=== PATIENT | female | born 1995 | race Caucasian/White ===

== ENCOUNTER 2023-10-01 18:26 | Observation (INO) | payer BC, SELFPAY ==
[2023-10-01 10:58] VITALS: BP 120/86
[2023-10-01 11:25] LABS: % Basophils 0.8 % (0-2); % Eosinophils 1.2 % (0-6); % Immature Granulocytes 0.5 % (0-0.5); % Lymphocytes 29.2 % (20.5-51.1); % Monocytes 7.9 % (1.7-9.3); % Neutrophils 60.4 % (42.2-75.2); Absolute Basophils 0.1 10^3/uL (0-0.2); Absolute Eosinophils 0.1 10^3/uL (0-0.7); Absolute Lymphocytes 2.4 10^3/uL (1.2-3.4); Absolute Monocytes 0.7 10^3/uL (0.1-0.6); Hematocrit 41.1 % (37.0-47.0); Hemoglobin 14.2 g/dL (12.0-16.0); Mean Corp Hgb Conc. 34.5 g/dL (33.0-37.0); Mean Corpuscular Hgb 30.1 pg (27.0-31.0); Mean Corpuscular Volume 87.1 fL (81.0-99.0); Mean Platelet Volume 11.1 fL (7.4-10.4); Nucleated Red Blood Cells % 0 %; Platelet Count 304 10^3/uL (130-400); Red Blood Cell Count 4.72 10^6/uL (4.20-5.40); Red Cell Dist. Width 12.1 % (11.5-14.5); White Blood Cell Count 8.3 10^3/uL (4.8-10.8)
[2023-10-01 11:52] LABS: Blood Urea Nitrogen 13 mg/dl (7-17); Calcium 9.7 mg/dl (8.4-10.2); Carbon Dioxide 24 mmol/L (22-30); Chloride 104 mmol/L (98-107); Glucose 82 mg/dl (70-99); Sodium 134 mmol/L (135-145); eGFR > 60.00
--- NOTE | 2023-10-01 12:21 | ED.GENMED ---
History of Present Illness
General
Chief Complaint: Abdominal Symptoms
Source: patient
Exam Limitations: none
Time Seen by Provider: 10/01/23 11:48
Nursing documentation reviewed up to this point in time: agreed with
Travel History
Have you had any contact with someone who has COVID-19?: No
Do you have any symptoms of coronavirus? Fever > 100 degrees, chills, cough, shortness of breath, sore throat, loss of taste or smell, muscle aches, or headache?: No
History of Present Illness
History of Present Illness:
28-year-old female presents emergency department due to nausea and vomiting, and constipation for the past 10 days. She is unable to keep food down for the past 7 days. She was recently in [place], and seen in the ED there. She takes Ozempic
with her last dose 2 weeks ago.
Past History
Past History
ED Past Medical History: None
ED Past Surgical History: None
Social History
Tobacco: Non-smoker
Alcohol: None
Drug: None
Personal: Partner
Review of Systems
Review of Systems
Allergies reviewed?: Yes
All Other Systems: Not applicable
Constitutional: Reports no symptoms
EENT: Reports no symptoms
Respiratory: Reports no symptoms
Cardiac: Reports no symptoms
ABD/GI: Reports abdominal pain, vomiting and constipated
: Reports no symptoms
Musculoskeletal: Reports no symptoms
Skin: Reports no symptoms
Neurological: Reports no symptoms
Endocrine: Reports no symptoms
Hematologic/Lymphatic: Reports no symptoms
Psychiatric: Reports no symptoms
Phy Exam
Physical Exam
Physical Exam:
Physical Exam
General: Appears uncomfortable, vomiting in the ED
Neck: supple. no meningeal signs. normal posterior pharynx
Heart: s1/s2 regular rate and rhythm, no murmur. equal radial
pulses.
HEENT: Pupils equal round reactive to light, EOMI
Lungs: no acute respiratory distress. clear bilaterally
Abdomen: normal bowel sounds. not tender. no CVAT, rectal exam no fecal impaction
Neuro: alert and oriented. no focal neurological deficits cranial nerves II through XII intact
Skin: no rash
Psychiatric: well kept. interactive and cooperative
Extremities: no edema. no calf tenderness. negative homans. good distal pulses
Course
Orders/Labs/Results
Orders:
Orders
10/01/23 11:07
Basic Metabolic Panel Urgent
Complete Blood Count/With Diff Urgent
10/01/23 12:00
Add On- LAB Urgent
Tests Added?: lfts, lipase
10/01/23 12:20
IV Insert/Care/Rem.- Treatment PRN
Abdominal Series [CR Obstruct Series W/pa Chest] Urgent
Comment:
Reason For Exam: constipation
10/01/23 12:23
0.9% Sodium Chloride 1000 ml [Nss] 2,000 ml IV BOLUS
10/01/23 12:29
HCG, Serum Qualitative Screen Urgent
Comment: ADD ON
LFT [Fcezz-Lyjy-Rvmthtj] Urgent
Lipase Urgent
Potassium Urgent
10/01/23 13:27
Add On- LAB Urgent
Tests Added?: serum hcg
Urinalysis Reflex To Culture Urgent
10/01/23 14:28
Ondansetron Injectable [Zofran] 4 mg IV NOW STA
10/01/23 15:36
Magnesium Citrate [Citroma] 300 ml PO ONCE ONE
10/01/23 17:20
0.9% Sodium Chloride 1000 ml [Nss] 1,000 ml IV BOLUS
10/01/23 17:28
Ondansetron Injectable [Zofran] 4 mg IV NOW STA
Abnormal Lab Results
10/01/23
11:07
MPV 11.1 H fL
(7.4-10.4)
Absolute Monos (auto) 0.7 H 10^3/uL
(0.1-0.6)
Sodium 134 L mmol/L
(135-145)
10/01/23 11:07
10/01/23 12:29
Vital Signs
Initial and Last Documented VS:
Initial Vital Signs
Temp Pulse Resp BP Pulse Ox
98.1 F 70 18 120/86 98
10/01/23 10:58 10/01/23 10:58 10/01/23 10:58 10/01/23 10:58 10/01/23 10:58
Last Documented Vital Signs
Temp Pulse Resp BP Pulse Ox
98.1 F 66 16 109/73 100
10/01/23 10:58 10/01/23 17:25 10/01/23 17:25 10/01/23 17:25 10/01/23 17:25
MDM/Problems Addressed
Differential Diagnosis Includes:
Bowel obstruction, fecal impaction, Ozempic reaction, pancreatitis
MDM/Problems Addressed:
28-year-old female with nausea vomiting, constipation and abdominal discomfort. Despite IV fluids and IV Zofran, patient still vomiting in ED.
*Radiology
Radiology exam reviewed: radiology read reviewed (Obstruction series no acute findings)
*Pulse Oximetry
Patient hypoxic: no
*EKG
Interpreted by ED Provider?: NA
*Choral Teacher Interpretation
Rate: Choral Teacher- N/A
*Critical Care Note
Total Time (30-74mins, 75-104mins- exclusive of procedures): Not Applicable
Data Reviewed
Further Testing Considered But Not Given:
CT abdomen pelvis not indicated
Patient Management
Escalation/DeEscalation of care consider admission/obs:
Admit indicated
ED Attending Note
-
Portions of this chart may have been created with voice recognition software.� Occasional wrong word or��sound alike� substitutions may have occurred due to the inherent limitations of voice recognition software.
Discharge Plan
Departure
Patient Disposition: Admit
Date of Disposition: 10/01/23
Time of Disposition: 17:03
Admit to: Med/Surg
Presentation/result/management discussed w/ accepting MD/DO: Hospitalist
Patient with high blood pressure during this ER visit?: No
Condition: Fair
Discharge Problem:
Intractable vomiting
Prescriptions:
No Action
No Current Medications
0
Referrals:
Robinson Fang DO [Family Provider] -
Interventions
Interventions:
*Risk Screen - Suicide Last Done: 10/01/23 12:28
*General Assessment Last Done: 10/01/23 12:27
*Neglect/Abuse Screening Last Done: 10/01/23 12:28
ED- Fall Risk Assessment Last Done: 10/01/23 17:36
*ED COVID-19 Vaccine History Last Done: 10/01/23 12:27
LS-Qlymwp-Vkyvqkbpvr Assessment Last Done: 10/01/23 12:28
Discharge Date and Time
Print Language: ARMENIAN
[2023-10-01 12:27] VITALS: BMI 29.2
[2023-10-01 12:29] VITALS: BP 105/66
[2023-10-01] MEDS: NSS 2000 IV (12:34)
[2023-10-01 12:58] LABS: ALT (SGPT) 15 U/L (0-35); AST (SGOT) 21 U/L (14-36); Albumin 4.3 g/dl (3.5-5.0); Alkaline Phosphatase 60 U/L (38-126); Direct Bilirubin 0.1 mg/dl (0.0-0.4); Lipase 86 U/L (23-300); Potassium 3.7 mmol/L (3.5-5.1); Total Bilirubin 0.8 mg/dl (0.2-1.3); Total Protein 6.9 g/dl (6.3-8.2)
[2023-10-01 13:51] VITALS: BP 110/74
[2023-10-01 14:24] LABS: HCG, Serum Qualitative Screen Negative
[2023-10-01] MEDS: ZOFRAN 4 MG IV ×2 (14:30→17:31)
[2023-10-01] MEDS: CITROMA 300 ML PO (15:44)
[2023-10-01] MEDS: NSS 1000 IV (17:23)
[2023-10-01 17:25] VITALS: BP 109/73
--- NOTE | 2023-10-01 18:01 | HPS.HSE ---
Family Physician
-
Family Physician: Robinson Fang
Chief Complaint
-
Nausea and vomiting and no bowel movements x 10 days
History of Present Illness
28-year-old female who is presenting with nausea vomiting and abdominal pain. Patient said no bowel movements for the last 10 days. States she has tried multiple oral laxatives and multiple enemas for the last 3 days and with no bowel movements.
States last bowel movement was 10 days ago when she took her vyvanse. states of lower quadrant abdominal pain. States she was in [place] where she went to the ER and a CAT scan was performed without p.o. or IV contrast which was negative.
However patient and boyfriend does not have a report. States she is not able to tolerate any p.o. intake including liquids leading to severe water nausea and vomiting. Patient states she has been on Ozempic since last year and 3 weeks ago she
upped her dose to 1 mg. Taking Ozempic for weight loss. Unable to tolerate any p.o. intake and worsening of symptoms thus decided come into the ER. Also states of palpitations at times. States feeling cold at times. States of chest pain.
Denies any aggravating alleviating factors or chest pain. States of lower quadrant abdominal pain/cramps. Drinks alcohol socially last drink was on Monday and was unable to tolerate it. Denies taking any other drugs. Rectal exam in the ER with
no impaction.
Medical History
Past Medical History
Past Medical History: Reports Psychiatric (ADHD)
Past Surgical History: Reports None
Social History
Tobacco: Non-smoker
Alcohol: Occasional
Family History
Family History: Not pertinent
Allergies / Home Medications
Allergies reflects when Allergies were last updated in [facility].
Home Medications with original date entered in [facility]
Allergy/Medication List:
Allergies
Allergy/AdvReac Type Severity Reaction Status Date / Time
No Known Allergies Allergy Unverified 10/01/23 11:02
Home Medications
No Meds [No Current Medications] 10/01/23
Review of Systems
-
History Source: Patient
A 12 point ROS was completed and negative except as noted: Yes
Physical Exam
Vital Signs
Vital Signs
Temp Pulse Resp BP Pulse Ox
98.1 F 66 16 109/73 100
10/01/23 10:58 10/01/23 17:25 10/01/23 17:25 10/01/23 17:25 10/01/23 17:25
Physical Exam
General: Well Developed, Well Nourished and No Apparent Distress
HEENT: NormoCephalic, Moist mucous membranes and Atraumatic
Respiratory: Clear
Cardiac: S1/S2 and Regular Rhythm; No Murmur or Rub
GI: Soft, Non Distended, Normal Bowel Sounds and Tender (Bilateral lower quadrants); No Organomegaly
Rectal: Deferred by Provider
Musculoskeletal: No Clubbing, No Cyanosis and No Edema
Skin: No Rash
Neuro: Awake, Alert, Oriented, AO x 3, No Motor Deficits and Nonfocal/grossly intact
Psych: Calm
Laboratory Results
-
10/01/23 11:07
10/01/23 12:29
Laboratory Results
Total Bilirubin 0.8 mg/dl (0.2-1.3) 10/01/23 12:29
AST 21 U/L (14-36) 10/01/23 12:29
ALT 15 U/L (0-35) 10/01/23 12:29
Alkaline Phosphatase 60 U/L (38-126) 10/01/23 12:29
Lipase 86 U/L (23-300) 10/01/23 12:29
Impression/Plan
-
#Nausea and vomiting likely secondary side effects of Ozempic
#Constipation concern for ileus
#Dehydration
Start patient on aggressive IV fluid resuscitation
Check CT abdomen pelvis
Abdominal flatplate with nonobstructive bowel gas pattern. No obstruction. No free air.
No prior imaging
Clears for now and advance as tolerated
If no improvement can consider gastroenterology evaluation
Check lactic acid
UA is pending
Check UDS
Start H2 olga IV
Did not tolerate magnesium citrate
Antinausea meds as needed. Check QTc.
Lipase within normal limits
#ADHD
Takes vyvanse prn
#Chest pain likely secondary to severe nausea and vomiting
Currently chest pain-free
Trend trop for now
DVT ppx-scds SCDs and encourage ambulation
I spent a total of 80 minutes with the patient or on the floor. More than 50% of this time involved counseling and coordination of care.
[2023-10-01] MEDS: OMNIPAQUE 50 ML PO (18:20)
[2023-10-01 18:36] LABS: Lactic Acid 0.7 mmol/L (0.7-2.0)
[2023-10-01 22:05] VITALS: BP 111/78
[2023-10-01] MEDS: PEPCID 20 MG IV (22:22)
[2023-10-01] MEDS: LR 1000 IV (22:22)
[2023-10-01] MEDS: NSS (PRESERVATIVE FREE) 8 ML IV (22:30)
[2023-10-01 22:52] LABS: Troponin I < 0.012 ng/ml
[2023-10-01 23:35] LABS: Urine Albumin Negative (Neg - Trace); Urine Bilirubin Negative (Negative); Urine Character Clear (Clear); Urine Color Straw; Urine Glucose Negative (Negative); Urine Ketone 3+ (Negative); Urine Leukocyte Negative (Negative); Urine Nitrite Positive (Negative); Urine Occult Blood Negative (Negative); Urine Urobilinogen Negative (Neg - 1+)
[2023-10-02] LABS: Urine Squamous Cell 21-25 /LPF (Few)
[2023-10-02 00:02] LABS: Urine Red Blood Cell None Seen /HPF (0-2)
[2023-10-02 00:03] LABS: Urine Bacteria Few (Negative)
[2023-10-02 00:10] LABS: Amphetamines Negative (Negative); Barbiturates Negative (Negative); Benzodiazepines Negative (Negative); Buprenorphine Negative (Negative); Cocaine Negative (Negative); Marijuana Negative (Negative); Methadone Negative (Negative); Methamphetamines Negative (Negative); Opiates Negative (Negative); Phencyclidine Negative (Negative); Tricyclic Antidepressants Negative (Negative)
[2023-10-02] MEDS: ZOFRAN 4 MG IV ×2 (00:15→07:09)
[2023-10-02] MEDS: LR 1000 IV (03:18)
[2023-10-02 05:21] LABS: % Basophils 1.1 % (0-2); % Eosinophils 1.3 % (0-6); % Immature Granulocytes 0.3 % (0-0.5); % Lymphocytes 30.2 % (20.5-51.1); % Monocytes 6.6 % (1.7-9.3); % Neutrophils 60.5 % (42.2-75.2); Absolute Basophils 0.1 10^3/uL (0-0.2); Absolute Eosinophils 0.1 10^3/uL (0-0.7); Absolute Lymphocytes 2.3 10^3/uL (1.2-3.4); Absolute Monocytes 0.5 10^3/uL (0.1-0.6); Absolute Neutrophils 4.5 10^3/uL (1.4-6.5); Hemoglobin 11.5 g/dL (12.0-16.0); Mean Corp Hgb Conc. 33.8 g/dL (33.0-37.0); Mean Corpuscular Hgb 29.7 pg (27.0-31.0); Mean Corpuscular Volume 87.9 fL (81.0-99.0); Mean Platelet Volume 11.2 fL (7.4-10.4); Nucleated Red Blood Cells % 0 %; Platelet Count 242 10^3/uL (130-400); Red Blood Cell Count 3.87 10^6/uL (4.20-5.40); Red Cell Dist. Width 12.2 % (11.5-14.5); White Blood Cell Count 7.5 10^3/uL (4.8-10.8)
[2023-10-02 05:38] LABS: ALT (SGPT) 11 U/L (0-35); AST (SGOT) 17 U/L (14-36); Albumin 3.2 g/dl (3.5-5.0); Alkaline Phosphatase 44 U/L (38-126); Blood Urea Nitrogen 7 mg/dl (7-17); Calcium 8.6 mg/dl (8.4-10.2); Carbon Dioxide 21 mmol/L (22-30); Chloride 104 mmol/L (98-107); Estimated Creatinine Clearance > 125 ml/min; Glucose 68 mg/dl (70-99); Magnesium 1.8 mg/dl (1.6-2.3); Potassium 3.9 mmol/L (3.5-5.1); Sodium 133 mmol/L (135-145); Total Bilirubin 0.6 mg/dl (0.2-1.3); Total Protein 5.5 g/dl (6.3-8.2); eGFR > 60.00
[2023-10-02 05:48] LABS: Troponin I < 0.012 ng/ml
[2023-10-02 06:00] VITALS: BMI 27.1
--- NOTE | 2023-10-02 06:09 | W.PN.UPDATE ---
Update Note
Progress Note Update
pt NOT tolerating po
morning glucose on labs 68
will change ivf to D5LR
[2023-10-02] MEDS: D5LR 1000 IV ×3 (06:16→23:50)
[2023-10-02] MEDS: PEPCID 20 MG IV ×2 (07:38→20:26)
[2023-10-02] MEDS: NSS (PRESERVATIVE FREE) 8 ML IV ×2 (07:39→20:26)
[2023-10-02 10:32] LABS: Glucose - Point of Care 87 mg/dl (70-99)
[2023-10-02] MEDS: COMPAZINE 5 MG IV (10:39)
[2023-10-02 11:08] LABS: Troponin I < 0.012 ng/ml
--- NOTE | 2023-10-02 11:12 | W.PN.HOSP.TC ---
Today's Communication/Plan
-
Continue with symptomatic treatments including IV fluids, antiemetics, laxatives. Advance diet as tolerated.
Consult GI
Assessment / Plan
Assessment / Plan
# Intractable nausea, vomiting, abdominal discomfort and constipation -so far evaluation has been nondiagnostic for any acute abdomen. CT of the abdomen pelvis is nondiagnostic. She is intractable symptoms for more than a week now. I suspect this
may be Ozempic related. She is on it April last year. No GI symptoms on initial use. Dose was increased 3 weeks ago and only had 1 higher dose of Ozempic and then subsequently started to have GI symptoms so has not used it in the last 2 weeks.
Ozempic as long acting with half-life of 1 week and can have prolonged GI symptoms. Continue with symptomatic support. Consult GI to evaluate for other causes of intractable GI symptoms.
Check TSH and lipase.
#Dehydration
Continue with fluid support till oral intake is adequate
#ADHD
Takes vyvanse prn
DVT ppx-scds SCDs and encourage ambulation
Anticipated Discharge: > 48 hours
Subjective/Interval History
-
Date of Service: October 02, 2023
Ongoing nausea. Threw up once this morning. She got Compazine after Zofran this morning and she feels okay for now. She has this vague abdominal discomfort. Has not had any bowel movement yet. Passing some gas.
No fever or chills.
Objective Data
-
Labs:
Laboratory Results
10/02/23
05:05
WBC 7.5
Hgb 11.5 L
Hct 34.0 L
Plt Count 242 D
Sodium 133 L
Potassium 3.9
Chloride 104
Carbon Dioxide 21 L
BUN 7
Creatinine 0.5 L
Glucose 68 L
Calcium 8.6
Total Bilirubin 0.6
AST 17
ALT 11
Alkaline Phosphatase 44
Vital Signs:
Vital Signs
Temp Pulse Resp BP Pulse Ox
98.2 F 72 14 111/78 97
10/01/23 22:05 10/01/23 22:05 10/01/23 22:05 10/01/23 22:05 10/01/23 22:05
Review of Systems
-
Respiratory: Denies Trouble Breathing
Cardiac: Denies Chest Pain
Genitourinary: Denies Dysuria
Neuro: Denies Dizzy
Physical Exam
-
General: No Apparent Distress
HEENT: Moist Mucous Membranes
Respiratory: Clear to Auscultation
Cardiac: Regular Rhythm and S1/S2
GI: Soft, Nondistended, Normal Bowel Sounds and Tender (some discomfort in lower abdomen;no rebound,guarding.)
Neuro: AO x 3
Psych: Calm
Data Reviewed
-
Labs: Labs Reviewed by me
[2023-10-02 11:24] LABS: Lipase 61 U/L (23-300)
[2023-10-02] MEDS: MIRALAX 17 GRAMS PO (12:06)
[2023-10-02] MEDS: SENOKOT 8.59999999999999964 MG PO ×2 (12:06→20:26)
[2023-10-02 12:09] LABS: TSH 1.14 uIU/ml (0.47-4.68)
[2023-10-02 14:30] VITALS: BMI 29.0
--- NOTE | 2023-10-02 15:14 | CON.GI ---
Addendum entered and electronically signed by Madhavi Henry MD 10/02/23 17:31:
I saw and examined the patient.
The TELETYPEWRITER INSTALLER or PA's note was reviewed and I agree with the note.
Comment:
Pt with a hx of ADHD, on mounjaro for weight loss now on ozempic with increasing doses. with nausea, vomiting, constipation. Recent travel
abd: soft, nontender
impression
n/v/constipation likely from ozempic but r/o other causes
plan:
antiemetics
miralax
PPI
if diarrhea, stool studies
IVF
Original Note:
Consultation
-
Date/Time Consultation Requested: 10/02/23 1113
Date/Time Consultation Performed: 10/02/23 1400
Requesting Provider: Dr. Weiss
Performing Provider: Dr. Henry/DAPHNIE Terry
Reason for Consultation: N/V, no BM in a week
Medical History
Chief Complaint / HPI
Chief Complaint: n/V
History of Present Illness:
28-year-old female with past medical history of ADHD and obesity presents to the emergency room with nausea and vomiting with the inability to tolerate any oral intake. The patient was on Mounjaro in the past. However was changed over to Ozempic 7
weeks ago. Initially she was on 0.25 dose x 2 weeks then increase to 0.5 dose x 2 weeks. She was then increased to 1 mg dose x 2 weeks. She went to [place] on vacation a little over a week ago. She states that she started to have
constipation and some early nausea associated with going up to the 1 mg of Ozempic dose. She did take a second injection of the 1 mg dose prior to trip. She then states she started having nausea, vomiting and needed to seek assistance at the
emergency room in [place] for her symptoms. While she was there she was given IV fluids multiple antiemetics. She had CT imaging that showed constipation. She also was given medication and enemas as she states that she had not had a bowel
movement in over 4 days. She states that she did evacuate some bowels with that. She has not been able to produce a bowel movement on her own since that time. She never had any fevers. She felt chilled at times. She does take her Vyvanse as
needed. She states this is for concentration. Her last complete bowel movement was when she took her Vyvanse which was approximately 10 days ago. The patient came home from [place] and has been trying to take in clear liquids without much
success. She presented to the emergency room on 10/01/2023. Her last dose of Ozempic was 11 days ago. She denies any hematemesis, melena, hematochezia, dysphagia or odynophagia, sick contacts that she is aware of, recent changes in medications
other than discussed above, no illicit drugs, she did drink some alcohol on 09/24/23 but she states she started feeling sick prior to that. She denies any urinary complaints. Her hCG is negative. Her talk screen is negative. WBC 7.5, hemoglobin
11.5, hematocrit 34.0, platelets 242, sodium 133, potassium 3.9, chloride 104, CO2 21, BUN 7, creatinine 0.5, glucose 68, calcium 8.6, magnesium 1.8, total bilirubin 0.6, direct bilirubin 0.1, AST 17, ALT 11, alk phos 44, troponin less than 0.012 x
3, lipase 61, TSH 1.14. Obstruction series shows nonobstructive bowel gas pattern. CT of the abdomen and pelvis with IV and oral contrast shows contracted gallbladder with no evidence for calcified gallstones and no evidence of biliary ductal
dilatation. IUD present and appropriately positioned. Normal appearance of both ovaries. Small amount of free fluid within the pelvic cul-de-sac. Appendix normal. No evidence for bowel obstruction or free intraperitoneal air. Amount of stool
within the colon does not appear to be excessive.
Past Medical History
Past Medical History: Other (ADHD, obesity)
Past Surgical History: Other ([place] teeth)
Allergies / Home Medications
Allergy/AdvReac Type Severity Reaction Status Date / Time
No Known Allergies Allergy Unverified 10/01/23 11:02
�Medication �Instructions �Recorded
Glycerin Suppository 1 supp WY BIDPRN PRN constipation 10/02/23
bisacodyl 10 mg rectal suppository 10 mg WY DAILY PRN constipation 10/02/23
(Dulcolax (bisacodyl))
calcium carbonate 500 mg PO Q8HPRN PRN stomach 10/02/23
discomfort
lactulose 10 gram/15 mL oral 20 g PO QIDPRN PRN constipation 10/02/23
solution
lisdexamfetamine 30 mg capsule 30 mg PO DAILY PRN ADHD 10/02/23
(Vyvanse)
magnesium hydroxide 400 mg/5 mL 30 ml PO QIDPRN PRN constipation 10/02/23
oral suspension (Milk of Magnesia)
mineral oil 20 ml PO QIDPRN PRN constipation 10/02/23
semaglutide 1 mg/dose (4 mg/3 mL) 1 mg SC WE 10/02/23
subcutaneous pen injector (Ozempic)
sodium phosphates 19 gram-7 118 ml W[place] BIDPRN PRN constipation 10/02/23
gram/118 mL enema (Bhmvl-Hm-Kvg
Enema)
Review of Systems
Vital Signs
Temp Pulse Resp BP Pulse Ox
98.2 F 72 14 111/78 97
10/01/23 22:05 10/01/23 22:05 10/01/23 22:05 10/01/23 22:05 10/01/23 22:05
Physical Exam
Results
WBC 7.5 10^3/uL (4.8-10.8) 10/02/23 05:05
Hgb 11.5 g/dL (12.0-16.0) L 10/02/23 05:05
Hct 34.0 % (37.0-47.0) L 10/02/23 05:05
MCV 87.9 fL (81.0-99.0) 10/02/23 05:05
Plt Count 242 10^3/uL (130-400) D 10/02/23 05:05
Absolute Neuts (auto) 4.5 10^3/uL (1.4-6.5) 10/02/23 05:05
Sodium 133 mmol/L (135-145) L 10/02/23 05:05
Potassium 3.9 mmol/L (3.5-5.1) 10/02/23 05:05
Chloride 104 mmol/L (98-107) 10/02/23 05:05
Carbon Dioxide 21 mmol/L (22-30) L 10/02/23 05:05
BUN 7 mg/dl (7-17) 10/02/23 05:05
Creatinine 0.5 mg/dL (0.6-1.0) L 10/02/23 05:05
Calcium 8.6 mg/dl (8.4-10.2) 10/02/23 05:05
Total Bilirubin 0.6 mg/dl (0.2-1.3) 10/02/23 05:05
AST 17 U/L (14-36) 10/02/23 05:05
ALT 11 U/L (0-35) 10/02/23 05:05
Alkaline Phosphatase 44 U/L (38-126) 10/02/23 05:05
Lipase 61 U/L (23-300) 10/02/23 05:05
Diagnostic Image Results:
Prior GI Procedures:
EGD:
Colonoscopy:
Assessment / Plan
-
28-year-old female with past medical history of ADHD and obesity presents to the emergency room with nausea and vomiting with the inability to tolerate any oral intake. The patient was on Mounjaro in the past. However was changed over to Ozempic 7
weeks ago. Initially she was on 0.25 dose x 2 weeks then increase to 0.5 dose x 2 weeks. She was then increased to 1 mg dose x 2 weeks. She went to [place] on vacation a little over a week ago. She states that she started to have
constipation and some early nausea associated with going up to the 1 mg of Ozempic dose. She did take a second injection of the 1 mg dose prior to trip. She then states she started having nausea, vomiting and needed to seek assistance at the
emergency room in [place] for her symptoms. We are asked to evaluate the same as patient still has persistence of nausea and vomiting. CT reviewed by myself personally shows fecal material mostly in the hepatic flexure of the colon. Patient's
last dose of Ozempic was 11 days ago. She just recently increased to 1 mg dosage (2 injections ago). Patient did start with some nausea and constipation prior to this.
Impression:
Intractable nausea and vomiting
Inability to maintain oral hydration
Constipation, no obstruction noted on CT imaging
--> Stool appears to be in the hepatic flexure. No role for enemas at this point.
Plan:
-Will give antiemetics [id number]. EKG QTc interval okay
-Continue supportive care with IV fluids
-Continue H2 olga
-Clear liquids as tolerated
-Can trial some MiraLAX as tolerated, although not much stool in colon.
-If with worsening symptoms repeat obstruction series.
-
-
Thank you for consultation and allowing me to participate in the patient's care. Please call the design sales consultant GI physician during the after hours with any questions or concerns.
--- NOTE | 2023-10-02 15:32 | CM ---
CM reviewed medical records. OBS letter given.
Patient confirmed demographics. Patient denies history of VN, SNF and DME. Patient is active with her PCP. Patient uses [facility] in [place].
No needs noted.
[2023-10-02 15:38] LABS: Glucose - Point of Care 91 mg/dl (70-99)
[2023-10-02 16:39] VITALS: BP 114/67
[2023-10-02 16:41] VITALS: BMI 27.1
--- NOTE | 2023-10-02 16:45 | PTCARENOTE ---
Received patient from ED via stretcher. Pt AAOX3. VSS. Pox: 97% RA. IVFs infusing without difficulty. Patient denies pain. Family at bedside. Call oliveros within reach. Plan of care ongoing.
--- NOTE | 2023-10-02 17:31 | W.PN.UPDATE ---
Update Note
Progress Note Update
for billing purposes only
[2023-10-02] MEDS: COLACE 100 MG PO (20:26)
[2023-10-02 22:20] LABS: Glucose - Point of Care 91 mg/dl (70-99)
[2023-10-03 00:08] VITALS: BP 102/46
[2023-10-03 05:40] LABS: Hematocrit 36.1 % (37.0-47.0); Hemoglobin 12.2 g/dL (12.0-16.0); Mean Corp Hgb Conc. 33.8 g/dL (33.0-37.0); Mean Corpuscular Volume 88.7 fL (81.0-99.0); Mean Platelet Volume 11.2 fL (7.4-10.4); Platelet Count 231 10^3/uL (130-400); Red Blood Cell Count 4.07 10^6/uL (4.20-5.40); Red Cell Dist. Width 12.1 % (11.5-14.5); White Blood Cell Count 5.6 10^3/uL (4.8-10.8)
[2023-10-03 06:03] LABS: Blood Urea Nitrogen 2 mg/dl (7-17); Calcium 9.1 mg/dl (8.4-10.2); Carbon Dioxide 25 mmol/L (22-30); Chloride 107 mmol/L (98-107); Estimated Creatinine Clearance 114 ml/min; Glucose 93 mg/dl (70-99); Potassium 3.7 mmol/L (3.5-5.1); Sodium 136 mmol/L (135-145); eGFR > 60.00
[2023-10-03 07:00] VITALS: BP 109/69
[2023-10-03] MEDS: MIRALAX 17 GRAMS PO (08:05)
[2023-10-03] MEDS: COLACE 100 MG PO (08:05)
[2023-10-03] MEDS: SENOKOT 8.59999999999999964 MG PO (08:05)
[2023-10-03] MEDS: NSS (PRESERVATIVE FREE) 8 ML IV (08:05)
[2023-10-03] MEDS: PEPCID 20 MG IV (08:06)
[2023-10-03] MEDS: D5LR 1000 IV (10:09)
--- NOTE | 2023-10-03 13:51 | W.PN.HOSP.TC ---
Today's Communication/Plan
-
DC
Assessment / Plan
Assessment / Plan
# Intractable nausea, vomiting, abdominal discomfort and constipation -so far evaluation has been nondiagnostic for any acute abdomen. CT of the abdomen pelvis is nondiagnostic. She is intractable symptoms for more than a week now. I suspect this
may be Ozempic related. She is on it April last year. No GI symptoms on initial use. Dose was increased 3 weeks ago and only had 1 higher dose of Ozempic and then subsequently started to have GI symptoms so has not used it in the last 2 weeks.
Ozempic as long acting with half-life of 1 week and can have prolonged GI symptoms. Continue with symptomatic support.TSH/Lipase normal.
Appt GI input.
Patient already improving and tolerating clear liquids diet with symptomatic treatments.
Advance diet as tolerated to low residue diet and if tolerating low residue diet will DC patient home.
E. coli UTI-patient had E. coli in the urine culture. Last week she had a vaginal thrush for which she self treated with suppositories. She had some discomfort at that time but currently without any dysuria or frequency of urine. With that
story it is hard to exclude conclusively UTI though UA shows no significant pyruria. Tx for 3 days of abx.
#Dehydration
Improved
#ADHD
Takes vyvanse prn
DC home if tolerating diet
Anticipated Discharge: Today
Subjective/Interval History
-
Date of Service: October 03, 2023
Feeling improved. Tolerating clear liquids without any nausea. No BM but passing gas. Improved abdominal discomfort.
Objective Data
-
Labs:
Laboratory Results
10/03/23
05:07
WBC 5.6
Hgb 12.2
Hct 36.1 L
Plt Count 231
Sodium 136
Potassium 3.7
Chloride 107
Carbon Dioxide 25
BUN 2 L
Creatinine 0.7
Glucose 93
Calcium 9.1
Vital Signs:
Vital Signs
Temp Pulse Resp BP Pulse Ox
98.1 F 62 16 109/69 97
10/03/23 07:00 10/03/23 07:00 10/03/23 07:00 10/03/23 07:00 10/03/23 07:00
I&O
10/02/23 10/03/23 10/04/23
06:59 06:59 06:59
Intake Total 2059
Balance 2059
Review of Systems
-
Constitutional: Denies Fever or Chills
Respiratory: Denies Trouble Breathing
Cardiac: Denies Chest Pain
Neuro: Denies Dizzy
Physical Exam
-
General: No Apparent Distress
HEENT: Moist Mucous Membranes
Respiratory: Clear to Auscultation
Cardiac: Regular Rhythm and S1/S2
GI: Soft, Nontender, Nondistended and Normal Bowel Sounds
Neuro: AO x 3
Psych: Calm
Data Reviewed
-
Labs: Labs Reviewed by me
--- NOTE | 2023-10-03 14:01 | W.DS.TRANS ---
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
-
Discharge Instructions:
Discharge Diagnosis/Procedures Intractable GI symptoms suspected secondary to
Ozempic; possible UTI with E. coli
Diet Low Residue
Additional Diets Low residue for rest of the week
Activity As tolerated
Driving Restrictions As prior to admission
Bathing Restrictions None
Instructions:
Stand-Alone Forms:
Changes to Home Medications: Yes
Discharge Medications:
DC Medications w/original date entered in [employer]
calcium carbonate 500 mg PO Q8HPRN PRN stomach discomfort 10/02/23
lisdexamfetamine 30 mg capsule (Vyvanse) 30 mg PO DAILY PRN ADHD 10/02/23
sodium phosphates 19 gram-7 gram/118 mL enema (Qzwam-Po-Qbi Enema) 118 ml SD BIDPRN PRN constipation 10/02/23
acetaminophen 325 mg tablet 650 mg (2 x 325 mg) PO Q4HPRN PRN mild pain/YE/temp> 100.4F #1 tab 10/03/23
cephalexin 500 mg capsule 500 mg PO BID #4 caps 10/03/23
polyethylene glycol 3350 17 gram oral powder packet (HealthyLax) 17 g PO DAILY #10 ea 10/03/23
sennosides 8.6 mg tablet (Senna Laxative) 8.6 mg PO BID #20 tabs 10/03/23
Home Medication Changes
Medication-cephalexin, MiraLAX, senna
Discontinue medication-rectal suppositories for constipation and Ozempic
Pending Results: No
[2023-10-03] MEDS: STERILE WATER FOR INJECTION 10 ML IV (14:17)
[2023-10-03] MEDS: ROCEPHIN 1000 MG IV (14:18)
[2023-10-03 15:00] VITALS: BP 112/58
--- NOTE | 2023-10-03 15:20 | CM ---
mD entered order for discharge.
Spoke with patient she said she was ready for discharge.
Mary Ann will drive her home.
She said she did not have any other dc needs.
PLAN Home no needs
--- NOTE | 2023-10-05 16:32 | W.DCSUMMARY ---
Discharge Summary
Discharge Data
Date of Admission: 10/01/23
Date of Discharge: 10/03/23
-
Pending Results: No
Hospital Course
Primary diagnosis:
Intractable nausea, vomiting, abdominal discomfort and constipation suspected secondary to Ozempic use
Escherichia Coli Urinary tract infection
Secondary diagnosis:
Attention deficit hyperactivity disorder
Hospital course:
Patient has been using the Ozempic for the last few months for weight loss had a recent uptitration of the dose 3 weeks ago. After she took the first higher dose a week later she was having intractable nausea, vomiting, abdominal discomfort and
constipation. She tried various symptomatic treatments and laxative regimens without much help.
With Intractable symptoms and inability take orally she presented to the ER. She had a CT of the abdomen and pelvis x-rays show no evidence of acute intra-abdominal processes. Was also seen by GI. It was felt probably still Ozempic related and
with continued supportive treatment she did get better and was tolerating a diet prior to discharge.
Consultants on board:
[facility] Arellano
Discharge Plan
-
Patient Disposition: Home (Routine Discharge)
Discharge Diagnosis/Procedures: Intractable GI symptoms suspected secondary to Ozempic; possible UTI with E. coli
Diet: Low Residue
Additional Diets: Low residue for rest of the week
Activity: As tolerated
Driving Restrictions: As prior to admission
Bathing Restrictions: None
Referrals:
Robinson Fang DO [Family Provider] - in less than 1 week
Prescriptions:
New
acetaminophen 325 mg Tablet
650 mg PO Q4HPRN PRN (Reason: mild pain/YE/temp> 100.4F) Qty: 1 0RF
polyethylene glycol 3350 [HealthyLax] 17 gram Powder In Packet
17 g PO DAILY Qty: 10 0RF
cephalexin 500 mg capsule
500 mg PO BID Qty: 4 0RF
sennosides [Senna Laxative] 8.6 mg Tablet
8.6 mg PO BID Qty: 20 0RF
Rx Instructions:
can stop once bowels are regular
Continued
Ihgrs-Dj-Ygj Enema 19-7 gram/118 mL Enema
118 ml NC BIDPRN PRN (Reason: constipation)
calcium carbonate 500 mg calcium (1,250 mg) Tablet,Chewable
500 mg PO Q8HPRN PRN (Reason: stomach discomfort)
lisdexamfetamine [Vyvanse] 30 mg Capsule
30 mg PO DAILY PRN (Reason: ADHD)
Discontinued
mineral oil Oil
20 ml PO QIDPRN PRN (Reason: constipation)
magnesium hydroxide [Milk of Magnesia] 400 mg/5 mL Suspension
30 ml PO QIDPRN PRN (Reason: constipation)
bisacodyl [Dulcolax (bisacodyl)] 10 mg Suppository
10 mg NC DAILY PRN (Reason: constipation)
lactulose 10 gram/15 mL Solution
20 g PO QIDPRN PRN (Reason: constipation)
Ozempic 1 mg/dose (4 mg/3 mL) Pen Injector
1 mg SC WE
Patient Comments:
10/02/2023, pt. gets samples from their PCP per pt.
Glycerin Suppository
1 supp NC BIDPRN PRN (Reason: constipation)
Discharge Orders:
Discharge Patient (As Directed); Ordered 10/03/23
Ordered By: Rishi Weiss
Discharge Date and Time
Discharge Date/Time: 10/03/23 15:52
Print Language: GABONESE
== END 2023-10-03 15:52 | disposition home or self-care (01) ==
LOC: 3 WEST ACU 18:26
PROVIDERS: Physician Assistant Medical; ADMITTING PHYSICIAN Hospitalist; ATTENDING PHYSICIAN Internal Medicine; CONSULT PHYSICIAN Internal Medicine; EMERGENCY PHYSICIAN Emergency Medicine; FAMILY PHYSICIAN Family Medicine
DX: R11.2 Nausea with vomiting, unspecified (principal); R10.9 Unspecified abdominal pain; N39.0 Urinary tract infection, site not specified; K59.00 Constipation, unspecified; B96.20 Unspecified Escherichia coli [E. coli] as the cause of diseases classified elsewhere; F90.9 Attention-deficit hyperactivity disorder, unspecified type; R07.9 Chest pain, unspecified; R00.2 Palpitations; E86.0 Dehydration; E66.9 Obesity, unspecified; Z68.27 Body mass index [BMI] 27.0-27.9, adult
CPT/HCPCS: 74022; 74177; 80048; 80053; 80076; 80306; 81003; 81015; 82962; 83605; 83690; 83735; 84132; 84443; 84484; 84703; 85025; 85027; 87070; 87077; 87086; 87186; 93005; 96361; 96374; 96376; 99285; G0378; Q9967